=== PATIENT | male | born 1995 | race Caucasian/White ===

== ENCOUNTER → 2020-11-25 07:26 | Outpatient (CLI) | payer OTHER, SELFPAY ==
[2020-11-24 09:02] VITALS: BMI 29.0
[2020-11-25 10:09] LABS: Absolute Lymphocyte Count 2.72 X10^3/uL (0.83-4.51); Absolute Neutrophil Count 3.3 X10^3/uL (2.0-7.7); Basophil# 0.03 X10^3/uL; Basophil% 0.4 % (0-1); Eosinophil# 0.11 X10^3/uL; Eosinophils% 1.6 % (0-5); Hematocrit 50.3 % (40-54); Hemoglobin 16.3 g/dL (13.0-16.5); Lymphocyte # 2.72 X10^3/ul (4.0); Lymphocyte % 40.7 % (19-41); Mean Corp Hgb Conc 32.4 g/dL (32-36); Mean Corpuscular Volume 89.5 fL (80-94); Mean Platelet Vol. 11.1 fl (6.2-12.0); Monocyte# 0.54 X10^3/uL; Monocyte% 8.1 % (0-10); NRBC Flagged by Analyzer 0 % (0-5); Neutrophil # 3.26 X10^3/uL (2.7-7.7); Neutrophil % 48.8 % (47-70); Platelet Count 266 K/mm3 (150-450); RBC Distribution Width CV 12.5 % (11.6-14.6); RBC Distribution Width SD 41.1 fl (35.1-43.9); Red Blood Count 5.62 M/mm3 (4.6-6.2); White Blood Count 6.7 K/mm3 (4.4-11.0)
[2020-11-25 10:43] LABS: Hemoglobin A1c 4.8 % (3.8-5.6)
[2020-11-25 10:48] LABS: ALB/GLOB Ratio 1.1 RATIO (0.9-2.4); AST(SGOT) 21 U/L (15-37); Alanine Aminotransfer ALT/SGPT 42 U/L (16-61); Albumin, Serum 4.1 g/dL (3.2-5.0); Alkaline Phosphatase 69 U/L (45-117); Anion Gap 4 (5-15); BUN 12 mg/dL (7-18); BUN/Creat Ratio 10.8 RATIO (10-20); CRP, High Sensitivity Cardiac 0.38 mg/L; Calcium,Total 9.1 mg/dL (8.5-10.1); Chloride 106 mmol/L (98-107); Cholesterol 150 mg/dL (200); Creatinine, Serum 1.11 mg/dL (0.70-1.30); EST Glomerular Filtration Rate 87 mL/min (>60); Est Glom Filt Rate - Afr Amer 105 mL/min (>60); Free T3 3.2 pg/mL (2.18-3.98); Globulin 3.9 g/dL (2.2-4.2); Glucose 97 mg/dL (74-106); High Density Lipoprotein 43 mg/dL; Potassium 3.8 mmol/L (3.5-5.1); Sodium Level 138 mmol/L (136-145); T4 Free Direct 1.04 ng/dL (0.76-1.46); Thyroid Stim Hormone (TSH) 1.85 uIU/mL (0.358-3.74); Triglycerides 77 mg/dL; Very Low Density Lipoprotein 15 mg/dL (5-40)
[2020-11-26 16:09] LABS: Thyroid Peroxidase AB < 9 IU/mL (0-34)
[2020-11-26 20:53] LABS: Thyroglobulin Antibody < 1.0 IU/mL (0.0-0.9)
== END ==
PROVIDERS: PCP Internal Medicine; Referring Provider Internal Medicine; Visit Provider Internal Medicine
DX: L50.1 Idiopathic urticaria (principal); Z13.1 Encounter for screening for diabetes mellitus; Z13.220 Encounter for screening for lipoid disorders
CPT/HCPCS: 36415; 80053; 80061; 82306; 83036; 84439; 84443; 84481; 85025; 86141; 86376; 86800

== ENCOUNTER 2020-12-22 15:36 | Outpatient (RCR) | payer OTHER, SELFPAY ==
[2020-12-07 15:12] VITALS: BMI 27.2
--- NOTE | 2020-12-28 15:39 | HP.OTEVAL_ITS ---
Patient's Visit Information ARLETH DUGAN is a 25 year old M, referred to Occupational Therapy by Dr. Hellen Padgett DO, with a diagnosis of right elbow pain. Date of Evaluation: 12/22/20 Occupational Therapist: Cami Louis, KWABENAR/Licha, CHT - Subjective This 25 year old male was seen for OT eval with dx right elbow pain. pt states possible injury at 20 years old turning a wrench and pulled something in his right elbow- pt states a few day pain went away and his ROM returned. Pt states he has continued to have discomfort from time to time, pain and recently noticed he had limited ROM. Pt was concerned and decided to see dr. Pt states he would like to know what he can do to improve his ROM and prevent reinjury. - Pain right elbow 0 Pain Intensity Range: 1, 4 - ROM Elbow: right -20/120 left 0/140 Forearm: right sup 70 pron 60 left sup 75 pron 65 ROM Comments: pt demo with slight decrease in right elbow ext and flex. 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 with ADLs and IADLs by d/c Goal:: pt will report no pain grater than 2/10 following work task by d/c Goal:: pt will demo understanding of work ergonomics to protect elbow from further injury by d/c - Rehabilitation General Assessment: pt demo with slight limitations with elbow ext- tight biceps tendon , and pain during increase work tasks. pt limited with IADLs and would benefit from skilled OT services to ensure pt able to perform full right UE ROM without pain to return to pts PLOF. Today therapsit ed. pt on biceps tendon stretch. Therapist ed. pt on work ergo to ensure limited stress on elbow. pt demo understanding and agree to POC- Rehabilitation Potential: Good - Anticipated Interventions A/AAROM/PROM, Strengthening, Ergonomic Education, Home Program - Visit Plan Frequency: Every Other Week Duration: 3 Weeks TEXT: Thank you for the opportunity to evaluate your patient. For Medicare and Medicare HMO plans, please review the plan of care and approve it. It will need to be FAXED BACK to us at [phone] for Medicare purposes. Please let me know if there are questions or concerns regarding this plan of care. Physician Signature: Date:
--- NOTE | 2021-06-06 12:45 | HP.OT.NRP ---
ARLETH DUGAN was seen in my office for initial evaluation on 12/22/20. The following Plan of Care was established for this patient: Initial Frequency: Every Other Week Initial Duration: 3 Weeks Anticipated Interventions: A/AAROM/PROM, Strengthening, Ergonomic Education, Home Program This patient was last seen in our office 12/22/20. Pertinent comments regarding their Occupational therapy will appear below: pt was seen for OT eval only- no further apts scheduled pt is d/c at this time. At this point I will be discontinuing this patient from occupational therapy. I would be happy to see this patient again in the future if found appropriate by the physician. Thank you! Cami Louis, OTR/L, CHT
== END 2020-12-22 19:00 | disposition home or self-care (01) ==
LOC: OT 15:36
PROVIDERS: PCP Internal Medicine; Referring Provider Orthopaedic Surgery; Visit Provider Orthopaedic Surgery
DX: M25.521 Pain in right elbow (principal)
CPT/HCPCS: 97110; 97166

== ENCOUNTER → 2024-10-22 | Outpatient (CLI) | payer OTHER, SELFPAY ==
[2024-10-22 10:05] LABS: Absolute Lymphocyte Count 2.29 X10^3/uL (0.83-4.51); Absolute Neutrophil Count 3.6 X10^3/uL (2.0-7.7); Basophil# 0.03 X10^3/uL; Basophil% 0.5 % (0-1); Eosinophil# 0.05 X10^3/uL; Eosinophils% 0.8 % (0-5); Hematocrit 47.8 % (40-54); Lymphocyte # 2.29 X10^3/ul (0.83-4.51); Lymphocyte % 34.5 % (19-41); Mean Corp Hgb Conc 33.5 g/dL (32-36); Mean Corpuscular Hgb 29.2 pg (27.0-32.0); Mean Corpuscular Volume 87.2 fL (80-94); Mean Platelet Vol. 10.6 fl (6.2-12.0); Monocyte# 0.63 X10^3/uL; Monocyte% 9.5 % (0-10); NRBC Flagged by Analyzer 0 % (0-5); Neutrophil # 3.59 X10^3/uL (2.7-7.7); Neutrophil % 54.1 % (47-70); Platelet Count 281 K/mm3 (150-450); RBC Distribution Width CV 12.6 % (11.6-14.6); RBC Distribution Width SD 39.9 fl (35.1-43.9); Red Blood Count 5.48 M/mm3 (4.6-6.2); White Blood Count 6.6 K/mm3 (4.4-11.0)
[2024-10-22 10:43] LABS: Vitamin D,25 Hydroxy 41.5 ng/mL
[2024-10-22 11:28] LABS: AST(SGOT) 17 U/L (15-37); Alanine Aminotransfer ALT/SGPT 29 U/L (16-61); Alkaline Phosphatase 65 U/L (45-117); Anion Gap 7 (5-15); BUN 14 mg/dL (7-18); BUN/Creat Ratio 13.9 RATIO (10-20); Calcium,Total 9.3 mg/dL (8.5-10.1); Chloride 103 mmol/L (98-107); Cholesterol 149 mg/dL (200); Creatinine, Serum 1.01 mg/dL (0.70-1.30); EST Glomerular Filtration Rate 94 mL/min (>60); Est Glom Filt Rate - Afr Amer 114 mL/min (>60); Globulin 4.2 g/dL (2.2-4.2); Glucose 103 mg/dL (74-106); High Density Lipoprotein 41 mg/dL; Protein, Total 8.2 g/dL (6.4-8.2); Sodium Level 136 mmol/L (136-145); Triglycerides 83 mg/dL; Very Low Density Lipoprotein 17 mg/dL (5-40)
== END | disposition home or self-care (01) ==
LOC: LAB 09:20
PROVIDERS: PCP Internal Medicine; Referring Provider Internal Medicine; Visit Provider Internal Medicine
DX: Z00.00 Encounter for general adult medical examination without abnormal findings (principal); Z13.220 Encounter for screening for lipoid disorders; E55.9 Vitamin D deficiency, unspecified; R73.9 Hyperglycemia, unspecified
CPT/HCPCS: 36415; 80053; 80061; 82306; 83036; 84443; 85025